=== PATIENT | male | born 1965 | race Caucasian/White ===

== ENCOUNTER 2018-06-26 22:29 | Emergency (ER) | payer BC, SELFPAY ==
[2018-06-26 22:34] VITALS: BP 146/92; PULSE 86; RESP 16; TEMP 37.1; O2SAT 98
--- NOTE | 2018-06-26 22:52 | W.ED.GENAD ---
Discharge Plan Disposition Patient Disposition: HOME Condition: Good Discharge Details Chief Complaint: DentalOral Clinical Impression: Dental infection Primary Care Provider: Kenyatta,Local ED Provider: [facility] Prescriptions: New HurriCaine 20 % Gel 30 g Mucous Membrane Q6H PRNQty: 30 RF: 0 clindamycin HCl 150 mg capsule 450 mg PO TID Qty: 90 RF: 0 Continued rabeprazole [Aciphex] 20 mg Tablet,Delayed Release (Dr/Ec) 20 mg PO DAILY RF: 0 sertraline 25 mg Tablet 25 mg PO DAILY RF: 0 Discharge Instructions Instructions: Dental Abscess (ED) Additional Instructions: Take antibiotic as directed for dental infection. May use the benzocaine every 6 hours to help with the pain. Alternate Tylenol with Advil. Follow-up with a dentist next week. Return to ED for fever, facial swelling/pain, difficulty breathing, inability to swallow. Medical Decision Making Patient with percussion tenderness and pain radiating into the maxillary sinus suggestive of dental infection. The left upper back molar is very decayed and broken but this is not the tooth that is bothering him. The premolar is a tooth that is symptomatic and does not look obviously decayed but does have a filling present. Topical benzocaine did help control the pain. He is allergic to penicillin and will therefore be started on clindamycin. He will need to follow-up with a dentist. Return to the emergency department for fever, increasing facial pain swelling, other concerns. HPI General Mode of arrival: ambulatory. Date/Time Provider Initiated Documentation: 06/26/18 22:43. Limitations to Documentation: no limitations. Information obtained by: patient. HPI Narrative: Patient presents to ED with complaints of left upper dental pain. Pain has been present during the week. He just came back from a business trip. Pain is left upper radiating into the maxillary region. He has had no fever. He has no swelling. He has no difficulty breathing or swallowing. Pain has got progressively worse. He has been taking Advil and using Orajel to try to control the pain. Related Data Home Medications Medication Instructions Recorded Confirmed benzocaine [HurriCaine] 30 g MUCOUS MEMBRANE Q6H PRN #30 gm 06/26/18 clindamycin HCl 450 mg PO TID #90 cap 06/26/18 rabeprazole [Aciphex] 20 mg PO DAILY 06/26/18 06/26/18 sertraline 25 mg PO DAILY 06/26/18 06/26/18 Previous Rx's Medication Instructions Recorded benzocaine [HurriCaine] 30 g MUCOUS MEMBRANE Q6H PRN #30 gm 06/26/18 clindamycin HCl 450 mg PO TID #90 cap 06/26/18 Allergies Allergy/AdvReac Type Severity Reaction Status Date / Time codeine Allergy Intermediate Nausea Unverified 06/26/18 22:40 Penicillins Allergy Intermediate Hives Unverified 06/26/18 22:40 Sulfa (Sulfonamide Allergy Intermediate Hives Unverified 06/26/18 22:40 Antibiotics) General Stated Complaint: DentalOral JOSIE: 4 Review of Systems Constitutional Denies chills, Denies fever(s) and Denies headache(s) ENT Denies otalgia, Reports facial pain, Denies headache(s), Denies neck pain, Denies throat swelling and Denies tongue swelling Cardiovascular Denies dyspnea Respiratory Denies dyspnea Musculoskeletal Denies neck pain Integumentary/Breasts Denies erythema Neurologic Denies headache(s) Allergic/Immunologic Denies throat swelling and Denies tongue swelling [facility] Medical History Hiatal hernia (Chronic) Social History Smoking/Tobacco Use Status: Current-Occasional Tobacco Type: cigars Alcohol Intake: current Alcohol Intake frequency: a few times a week Drug use: Never Substance use type: does not use Do you feel safe at home: Yes Do you feel safe in your relationship?: Yes Exam Const General: cooperative and no acute distress Orientation: alert and oriented x3 HENMT Head: normocephalic and atraumatic Face and sinus: normal facial exam and sinuses tender Mouth: oral mucosae normal Teeth and gingiva: gingiva normal, multiple restorations and other (Percussion tenderness to left upper premolar.) Throat: posterior oropharynx normal Neck Neck: trachea midline, supple and no anterior neck swelling Skin General skin exam: no erythema Course Vital Signs Temperature 98.8 F 06/26/18 22:34 Pulse 86 06/26/18 22:34 Respiratory Rate 16 06/26/18 22:34 Blood Pressure 146/92 H 06/26/18 22:34 Pulse Oximetry 98 06/26/18 22:34 Temperature 98.8 F 06/26/18 22:34 Temperature Source Skin 06/26/18 22:34 Pulse 86 06/26/18 22:34 Respiratory Rate 16 06/26/18 22:34 Respiratory Effort Non-Labored 06/26/18 22:37 Blood Pressure 146/92 H 06/26/18 22:34 Blood Pressure Position Sitting 06/26/18 22:34 Pulse Oximetry 98 06/26/18 22:34 Oxygen Delivery Method Room Air 06/26/18 22:34 Oxygen Flow Rate 0 06/26/18 22:34 Pain Level 8 06/26/18 22:34
--- NOTE | 2018-06-26 22:55 | ED.GENADUL_ITS ---
Discharge Plan Disposition Patient Disposition: HOME Condition: Good Discharge Details Chief Complaint: DentalOral Clinical Impression: Dental infection Primary Care Provider: Kenyatta,Local ED Provider: [facility] Prescriptions: New HurriCaine 20 % Gel 30 g Mucous Membrane Q6H PRNQty: 30 RF: 0 clindamycin HCl 150 mg capsule 450 mg PO TID Qty: 90 RF: 0 Continued rabeprazole [Aciphex] 20 mg Tablet,Delayed Release (Dr/Ec) 20 mg PO DAILY RF: 0 sertraline 25 mg Tablet 25 mg PO DAILY RF: 0 Discharge Instructions Instructions: Dental Abscess (ED) Additional Instructions: Take antibiotic as directed for dental infection. May use the benzocaine every 6 hours to help with the pain. Alternate Tylenol with Advil. Follow-up with a dentist next week. Return to ED for fever, facial swelling/pain, difficulty breathing, inability to swallow. Medical Decision Making Patient with percussion tenderness and pain radiating into the maxillary sinus suggestive of dental infection. The left upper back molar is very decayed and broken but this is not the tooth that is bothering him. The premolar is a tooth that is symptomatic and does not look obviously decayed but does have a filling present. Topical benzocaine did help control the pain. He is allergic to penicillin and will therefore be started on clindamycin. He will need to follow-up with a dentist. Return to the emergency department for fever, increasing facial pain swelling, other concerns. HPI General Mode of arrival: ambulatory . Date/Time Provider Initiated Documentation: 06/26/18 22:43 . Limitations to Documentation: no limitations . Information obtained by: patient . HPI Narrative: Patient presents to ED with complaints of left upper dental pain. Pain has been present during the week. He just came back from a business trip. Pain is left upper radiating into the maxillary region. He has had no fever. He has no swelling. He has no difficulty breathing or swallowing. Pain has got progressively worse. He has been taking Advil and using Orajel to try to control the pain. Related Data Home Medications Medication Instructions Recorded Confirmed benzocaine [HurriCaine] 30 g MUCOUS MEMBRANE Q6H PRN #30 gm 06/26/18 clindamycin HCl 450 mg PO TID #90 cap 06/26/18 rabeprazole [Aciphex] 20 mg PO DAILY 06/26/18 06/26/18 sertraline 25 mg PO DAILY 06/26/18 06/26/18 Previous Rx's Medication Instructions Recorded benzocaine [HurriCaine] 30 g MUCOUS MEMBRANE Q6H PRN #30 gm 06/26/18 clindamycin HCl 450 mg PO TID #90 cap 06/26/18 Allergies Allergy/AdvReac Type Severity Reaction Status Date / Time codeine Allergy Intermediate Nausea Unverified 06/26/18 22:40 Penicillins Allergy Intermediate Hives Unverified 06/26/18 22:40 Sulfa (Sulfonamide Allergy Intermediate Hives Unverified 06/26/18 22:40 Antibiotics) General Stated Complaint: DentalOral JOSIE: 4 Review of Systems Constitutional Denies chills, Denies fever(s) and Denies headache(s) ENT Denies otalgia, Reports facial pain, Denies headache(s), Denies neck pain, Denies throat swelling and Denies tongue swelling Cardiovascular Denies dyspnea Respiratory Denies dyspnea Musculoskeletal Denies neck pain Integumentary/Breasts Denies erythema Neurologic Denies headache(s) Allergic/Immunologic Denies throat swelling and Denies tongue swelling [facility] Medical History Hiatal hernia (Chronic) Social History Smoking/Tobacco Use Status: Current-Occasional Tobacco Type: cigars Alcohol Intake: current Alcohol Intake frequency: a few times a week Drug use: Never Substance use type: does not use Do you feel safe at home: Yes Do you feel safe in your relationship?: Yes Exam Const General: cooperative and no acute distress Orientation: alert and oriented x3 HENMT Head: normocephalic and atraumatic Face and sinus: normal facial exam and sinuses tender Mouth: oral mucosae normal Teeth and gingiva: gingiva normal, multiple restorations and other (Percussion tenderness to left upper premolar.) Throat: posterior oropharynx normal Neck Neck: trachea midline, supple and no anterior neck swelling Skin General skin exam: no erythema Course Vital Signs Temperature 98.8 F 06/26/18 22:34 Pulse 86 06/26/18 22:34 Respiratory Rate 16 06/26/18 22:34 Blood Pressure 146/92 H 06/26/18 22:34 Pulse Oximetry 98 06/26/18 22:34 Temperature 98.8 F 06/26/18 22:34 Temperature Source Skin 06/26/18 22:34 Pulse 86 06/26/18 22:34 Respiratory Rate 16 06/26/18 22:34 Respiratory Effort Non-Labored 06/26/18 22:37 Blood Pressure 146/92 H 06/26/18 22:34 Blood Pressure Position Sitting 06/26/18 22:34 Pulse Oximetry 98 06/26/18 22:34 Oxygen Delivery Method Room Air 06/26/18 22:34 Oxygen Flow Rate 0 06/26/18 22:34 Pain Level 8 06/26/18 22:34
[2018-06-26] MEDS: Benzocaine 20% Gel 30 GM JAR MM (22:56)
[2018-06-26] MEDS: Clindamycin 150 MG CAP 450 MG PO (22:56)
[2018-06-26 23:04] VITALS: BP 146/92; PULSE 86; RESP 16; TEMP 37.1; O2SAT 98
== END 2018-06-26 23:04 | disposition home or self-care (01) ==
PROVIDERS: Emergency Provider Emergency Medicine
DX: K04.7 Periapical abscess without sinus (principal); F17.210 Nicotine dependence, cigarettes, uncomplicated
CPT/HCPCS: 99283